=== PATIENT | male | born 1950 | race Caucasian/White ===

== ENCOUNTER → 2019-12-01 12:30 | Outpatient (CLI) | payer MEDICARE, OTHER, SELFPAY ==
[2019-12-01 12:30] VITALS: PULSE 105; PULSE 123; PULSE 127; PULSE 136; PULSE 139; PULSE 151; PULSE 153; PULSE 99; O2SAT 91; O2SAT 92; O2SAT 93; O2SAT 94
--- NOTE | 2019-12-04 11:50 | PCM.PSN.6M ---
PSN 6 Minute Walk Test - 6 Minute Walk Test 6 Minute Walk Test: 6 Minute Walk Test PSN:6-Minute Walk Test Start: 12/01/19 13:48 Freq: Status: Active Protocol: [id number] Document 12/01/19 12:30 JLA (Rec: 12/01/19 13:52 JLA [id number]) 6 Minute Walk Test Date Performed 12/01/19 Time Performed 12:30 Height 5 ft [address]: Noel Altamirano Assistive device used: Walker Pre-test Oxygen Delivery Method Room Air Pulse Ox (%) 94 Pulse Rate (60-100 beats/min) 99 Dyspnea Pantera Scale (0-10) 0 Exertion Pantera Scale (6-20) 6 1st minute Oxygen Delivery Method Room Air Pulse Ox (%) 93 Pulse Rate (60-100 beats/min) 123 H 2nd minute Oxygen Delivery Method Room Air Pulse Ox (%) 92 Pulse Rate (60-100 beats/min) 127 H Reported Symptoms Increased Work of Breathing 3rd minute Oxygen Delivery Method Room Air Pulse Ox (%) 94 Pulse Rate (60-100 beats/min) 136 H Number of Rests Taken 1 Reported Symptoms Increased Work of Breathing 4th minute Oxygen Delivery Method Room Air Pulse Ox (%) 93 Pulse Rate (60-100 beats/min) 139 H Number of Rests Taken 1 Reported Symptoms Increased Work of Breathing 5th minute Oxygen Delivery Method Room Air Pulse Ox (%) 94 Pulse Rate (60-100 beats/min) 151 H Reported Symptoms Increased Work of Breathing 6th minute Oxygen Delivery Method Room Air Pulse Ox (%) 93 Pulse Rate (60-100 beats/min) 153 H Dyspnea Pantera Scale (0-10) 4 Exertion Pantera Scale (6-20) 18 Reported Symptoms Increased Work of Breathing Post-test Oxygen Delivery Method Room Air Pulse Ox (%) 91 Pulse Rate (60-100 beats/min) 105 H Full Laps Walked 6 Partial Lap, Number of Tiles Walked 0 Total Distance Walked (ft) 354 - Interpretation Interpretation: The patient ambulated 354 feet over the course of 6 minutes beginning on room air with the use of a walker. Pretesting oxygen saturation was noted to be 94% on room air. With ambulation, the jenny oxygen saturation was 92%. Although there was evidence of impaired walk distance, there was no significant exertional oxygen desaturation. - Recommendations Recommendations: There is no indication for the use of supplemental oxygen at this time.
== END ==
PROVIDERS: PCP Nurse Practitioner Family; Referring Provider Internal Medicine Critical Care Medicine; Visit Provider Internal Medicine Critical Care Medicine
DX: G47.10 Hypersomnia, unspecified (principal); R09.02 Hypoxemia
CPT/HCPCS: 94618